=== PATIENT | male | born 1990 | race Asian ===

== ENCOUNTER 2019-10-28 11:47 | Emergency (ER) | payer BC ==
[~2019-10-28] VITALS: Ht 177.8 cm; Wt 76.2 kg
[2019-10-28 12:05] VITALS: Ht 177.8 cm; Wt 76.2 kg
[2019-10-28 12:59] LABS: BASOPHIL % 0.3 % (0-2); PLATELET COUNT 230 x10^3mcL (130-400); RED CELL DISTRIBUTION WIDTH 12.7 % (11.5-14.5)
[2019-10-28 13:18] LABS: microscopic required? NO
[2019-10-28 13:25] LABS: UA SPECIFIC GRAVITY <=1.005 (1.005-1.035); urine erythrocyte NEGATIVE (NEGATIVE)
[2019-10-28 14:48] LABS: CALCIUM 9.1 mg/dL (8.5-10.1); CHLORIDE SERUM 104 mmol/L (98-107); CREATININE SERUM 1.2 mg/dL (0.7-1.3); GFR1 > 60 mL/min; GLUCOSE SERUM 88 mg/dL (74-106); POTASSIUM SERUM 4.1 mmol/L (3.5-5.1); SODIUM SERUM 143 mmol/L (136-145)
[2019-10-28 16:26] VITALS: BP 120/71
== END 2019-10-28 16:26 | disposition home or self-care (01) ==
LOC: ED 11:47
PROVIDERS: Emergency Medicine
DX: R55 Syncope and collapse (principal); M54.5 Low back pain
CPT/HCPCS: J7030